=== PATIENT | male | born 1990 | race American Indian/Alaskan Native ===

== ENCOUNTER 2017-03-16 10:04 | Emergency (ER) | payer OTHER ==
[2017-03-16 10:36] VITALS: BP 104/52
[2017-03-16] MEDS ORDERED: MOTRIN PO ONE (12:34)
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
== END 2017-03-16 13:20 | disposition home or self-care (01) ==
LOC: ED 10:04
DX: S16.1XXA Strain of muscle, fascia and tendon at neck level, initial encounter (principal); V49.49XA Driver injured in collision with other motor vehicles in traffic accident, initial encounter; Y93.89 Activity, other specified; Y92.89 Other specified places as the place of occurrence of the external cause; Y99.8 Other external cause status
CPT/HCPCS: 99282